=== PATIENT | male | born 1980 | race Caucasian/White ===

== ENCOUNTER → 2020-07-12 14:27 | Outpatient (CLI) | payer MEDICAID, SELFPAY ==
--- NOTE | 2020-07-12 14:32 | XR_ITS ---
PROCEDURE: XR FOOT WT BEARING LT 3V CLINICAL INDICATION: foot pain COMPARISON: No exams were available for comparison FINDINGS: No fracture or dislocation. No lytic or blastic change. There is normal mineralization. The joint spaces are well-preserved. No significant degenerative/arthritic changes. No erosive changes evident. Other findings:There is a small calcaneal spur but no obvious erosive change. No plantar fascia calcification. IMPRESSION: No acute findings. Dictated by: Kervin Gutierrez MD 07/12/2020 14:51 Kervin Gutierrez MD in [place] 07/12/2020 14:51
== END ==
PROVIDERS: PCP Family Medicine; Visit Provider Family Medicine
DX: M71.472 Calcium deposit in bursa, left ankle and foot (principal); M77.32 Calcaneal spur, left foot
CPT/HCPCS: 73630

== ENCOUNTER → 2022-04-30 20:44 | Outpatient (CLI) | payer MEDICAID, SELFPAY ==
[2022-04-30 17:56] LABS: Basophils % 0.5 % (0.1-2.0); Eosinophils # 0.1 K/mm3 (0.0-0.4); Eosinophils % 1.4 % (0.1-12.0); Hemoglobin 14.6 g/dL (14.1-18.0); Lymphocytes # 2.1 K/mm3 (0.7-4.5); Lymphocytes % 31.8 % (10-50); Mean Corpuscular HGB Conc 32.5 g/dL (31.8-35.4); Mean Corpuscular Hemoglobin 29.9 pg (27.0-31.2); Mean Corpuscular Volume 91.9 fl (80-94); Mean Platelet Volume 10.3 fl (7.4-10.4); Monocytes # 0.4 K/mm3 (0.1-1.0); Monocytes % 5.6 % (1.7-9.3); Neutrophils # 4.1 K/mm3 (1.8-7.8); Neutrophils % 60.7 % (37.0-80.0); Platelet Count 225 K/mm3 (142-424); Red Blood Count 4.89 M/mm3 (4.60-6.20); Red Cell Distribution Width 13.2 % (11.5-17.5); White Blood Count 6.7 K/mm3 (4.8-10.8)
[2022-04-30 17:59] LABS: Chloride 101 mmol/L (98-107); Potassium 4.1 mmoL/L (3.5-5.1); Sodium 138 mmol/L (136-145)
[2022-04-30 18:01] LABS: Blood Urea Nitrogen 18 mg/dl (9-20); Estimated Glomerular Filt Rate 126 ml/min (>60); GFR (African American) 152 ML/MIN (>60)
[2022-04-30 18:02] LABS: Alanine Aminotransferase 34 U/L (12-78); Albumin Level 4.2 g/dl (3.5-5.0); Albumin/Globulin Ratio 1.9 (1.1-1.8); Alkaline Phosphatase 80 U/L (38-126); Anion Gap 12.1 mEq/L (5-15); Aspartate Amino Transferase 33 U/L (17-59); Bilirubin,Total 0.5 mg/dl (0.2-1.3); Calcium 8.9 mg/dl (8.4-10.2); Carbon Dioxide 29 mmol/L (22.0-30.0); Chol/HDL Ratio 5.3 (1-3.5); Cholesterol 184 mg/dl (140-200); Globulin 2.2 g/dL (1.3-3.2); Glucose 126 mg/dl (74-100); HDL Cholesterol 35 mg/dl (40-60); Total Protein,Serum 6.4 g/dl (6.3-8.2)
[2022-04-30 18:13] LABS: Direct LDL Cholesterol 88.11 mg/dL (100-129)
[2022-04-30 18:20] LABS: Triglycerides 461 mg/dl (30-150)
[2022-04-30 18:33] LABS: Thyroid Stimulating Hormone 0.82 uIU/mL (0.465-4.68)
== END ==
PROVIDERS: PCP Nurse Practitioner Family; Visit Provider Nurse Practitioner Family
DX: R53.83 Other fatigue (principal); F20.9 Schizophrenia, unspecified; I10 Essential (primary) hypertension
CPT/HCPCS: 36415; 80053; 80061; 80165; 84443; 85025

== ENCOUNTER 2023-06-01 21:08 | Outpatient (CLI) | payer MEDICAID, SELFPAY ==
[2023-06-01 18:49] LABS: Basophils % 0.4 % (0.1-2.0); Eosinophils % 0.7 % (0.1-12.0); Hematocrit 45.4 % (42.0-52.0); Hemoglobin 15.8 g/dL (14.1-18.0); Lymphocytes # 2.2 K/mm3 (0.7-4.5); Lymphocytes % 35.9 % (10-50); Mean Corpuscular HGB Conc 34.9 g/dL (31.8-35.4); Mean Corpuscular Hemoglobin 31.6 pg (27.0-31.2); Mean Corpuscular Volume 90.4 fl (80-94); Mean Platelet Volume 10.3 fl (7.4-10.4); Monocytes # 0.4 K/mm3 (0.1-1.0); Monocytes % 7.1 % (1.7-9.3); Neutrophils # 3.3 K/mm3 (1.8-7.8); Neutrophils % 55.9 % (37.0-80.0); Platelet Count 215 K/mm3 (142-424); Red Blood Count 5.02 M/mm3 (4.60-6.20); Red Cell Distribution Width 13.3 % (11.5-17.5)
[2023-06-01 18:59] LABS: Alanine Aminotransferase 35 U/L (12-78); Albumin Level 4.5 g/dl (3.5-5.0); Albumin/Globulin Ratio 1.9 (1.1-1.8); Alkaline Phosphatase 77 U/L (38-126); Anion Gap 12.2 mEq/L (5-15); Aspartate Amino Transferase 37 U/L (17-59); Bilirubin,Total 0.4 mg/dl (0.2-1.3); Blood Urea Nitrogen 17 mg/dl (9-20); Calcium 9.7 mg/dl (8.4-10.2); Carbon Dioxide 27 mmol/L (22.0-30.0); Chloride 105 mmol/L (98-107); Chol/HDL Ratio 5.6 (1-3.5); Cholesterol 203 mg/dl (140-200); Estimated Glomerular Filt Rate 107 ml/min (>60); GFR (African American) 130 ML/MIN (>60); Globulin 2.4 g/dL (1.3-3.2); Glucose 110 mg/dl (74-100); HDL Cholesterol 36 mg/dl (40-60); Potassium 4.2 mmoL/L (3.5-5.1); Sodium 140 mmol/L (136-145); Total Protein,Serum 6.9 g/dl (6.3-8.2); Triglycerides 368 mg/dl (30-150); VLDL Cholesterol 74 mg/dL (0-40)
[2023-06-01 19:16] LABS: 25-OH Vitamin D, Total 19.9 ng/mL (30-100)
[2023-06-01 19:18] LABS: Direct LDL Cholesterol 109.38 mg/dL (100-129)
[2023-06-01 19:26] LABS: Hemoglobin A1C 5.4 % (4.0-6.0)
[2023-06-01 19:30] LABS: Thyroid Stimulating Hormone 1.62 uIU/mL (0.465-4.68)
[2023-06-08 10:42] LABS: Free Valproic Acid (Depakote) 14.9
== END 2023-06-01 23:59 ==
LOC: LAB.DROPOF 21:08
PROVIDERS: PCP Student in an Organized Health Care Education/Training Program; Visit Provider Student in an Organized Health Care Education/Training Program
DX: G40.909 Epilepsy, unspecified, not intractable, without status epilepticus (principal); E78.5 Hyperlipidemia, unspecified; E55.9 Vitamin D deficiency, unspecified; Z79.899 Other long term (current) drug therapy
CPT/HCPCS: 80053; 80061; 80165; 82306; 83036; 84443; 85025

== ENCOUNTER 2023-07-19 07:33 | Outpatient (CLI) | payer MEDICAID, SELFPAY ==
--- NOTE | 2023-07-19 07:39 | MR_ITS ---
FINAL REPORT CLINICAL HISTORY: Seizure. TREMORS COMPARISON: None FINDINGS: Multiplanar MR imaging of the brain was performed without contrast. There is no evidence of intracranial hemorrhage or mass. The ventricular size is normal. There is no evidence of shift of the midline structures. No abnormal extra-axial fluid collection is identified. The posterior fossa and brainstem have an unremarkable appearance. No area of abnormal restricted diffusion is identified. Normal major vessel vascular flow voids are seen. Mild mucosal thickening is present in the ethmoid air cells. IMPRESSION: Unremarkable brain with no acute intracranial abnormality. Reviewed, Interpreted and Dictated by Xavier Ng III, MD Transcribed by Kayley Gao Authenticated and [facility]
== END 2023-07-19 23:59 ==
LOC: RAD 07:35
PROVIDERS: PCP Nurse Practitioner Family; Visit Provider Specialist
DX: G40.909 Epilepsy, unspecified, not intractable, without status epilepticus (principal); Z87.828 Personal history of other (healed) physical injury and trauma
CPT/HCPCS: 70551

== ENCOUNTER 2023-10-04 09:26 | Outpatient (CLI) | payer MEDICAID, SELFPAY ==
[2023-10-04 19:04] LABS: Basophils % 0.5 % (0.1-2.0); Eosinophils # 0.1 K/mm3 (0.0-0.4); Eosinophils % 1.1 % (0.1-12.0); Hematocrit 43.9 % (42.0-52.0); Hemoglobin 15.5 g/dL (14.1-18.0); Lymphocytes # 2.5 K/mm3 (0.7-4.5); Lymphocytes % 40.4 % (10-50); Mean Corpuscular HGB Conc 35.4 g/dL (31.8-35.4); Mean Corpuscular Hemoglobin 32.2 pg (27.0-31.2); Mean Corpuscular Volume 90.8 fl (80-94); Monocytes # 0.4 K/mm3 (0.1-1.0); Monocytes % 6.6 % (1.7-9.3); Neutrophils # 3.1 K/mm3 (1.8-7.8); Neutrophils % 51.4 % (37.0-80.0); Platelet Count 235 K/mm3 (142-424); Red Blood Count 4.83 M/mm3 (4.60-6.20); Red Cell Distribution Width 13.8 % (11.5-17.5); White Blood Count 6.1 K/mm3 (4.8-10.8)
[2023-10-04 19:26] LABS: Alanine Aminotransferase 33 U/L (12-78); Albumin Level 4.5 g/dl (3.5-5.0); Albumin/Globulin Ratio 1.7 (1.1-1.8); Alkaline Phosphatase 86 U/L (38-126); Anion Gap 16.2 mEq/L (5-15); Aspartate Amino Transferase 33 U/L (17-59); Bilirubin,Total 0.5 mg/dl (0.2-1.3); Blood Urea Nitrogen 17 mg/dl (9-20); Calcium 9.9 mg/dl (8.4-10.2); Carbon Dioxide 26 mmol/L (22.0-30.0); Chloride 100 mmol/L (98-107); Chol/HDL Ratio 6.1 (1-3.5); Cholesterol 244 mg/dl (140-200); Estimated Glomerular Filt Rate 149 ml/min (>60); GFR (African American) 181 ML/MIN (>60); Globulin 2.6 g/dL (1.3-3.2); Glucose 91 mg/dl (74-100); HDL Cholesterol 40 mg/dl (40-60); Potassium 4.2 mmoL/L (3.5-5.1); Sodium 138 mmol/L (136-145); Total Protein,Serum 7.1 g/dl (6.3-8.2)
[2023-10-04 19:37] LABS: Direct LDL Cholesterol 107.44 mg/dL (100-129)
[2023-10-04 19:45] LABS: 25-OH Vitamin D, Total 27.6 ng/mL (30-100)
[2023-10-04 19:57] LABS: Triglycerides 864 mg/dl (30-150)
[2023-10-04 20:56] LABS: Free Thyroxine Index 2.1 ug/dL (5.93-13.13); T4 (Thyroxine) 6.4 ug/dl (5.53-11.0); Triiodothryronine (T3) Uptake 33 % (23.5-40.5)
[2023-10-04 21:09] LABS: Thyroid Stimulating Hormone 1.56 uIU/mL (0.465-4.68)
[2023-10-11 10:05] LABS: Free Valproic Acid (Depakote) 36.9
== END 2023-10-04 23:59 | disposition home or self-care (01) ==
LOC: LAB.DROPOF 10-05 09:27
PROVIDERS: PCP Nurse Practitioner Family; Visit Provider Nurse Practitioner Family
DX: G40.909 Epilepsy, unspecified, not intractable, without status epilepticus (principal); E78.5 Hyperlipidemia, unspecified; F20.9 Schizophrenia, unspecified; E55.9 Vitamin D deficiency, unspecified; Z68.35 Body mass index [BMI] 35.0-35.9, adult
CPT/HCPCS: 80053; 80061; 80165; 82306; 84436; 84443; 84479; 85025

== ENCOUNTER 2023-10-26 18:00 | Outpatient (CLI) | payer MEDICAID, SELFPAY ==
[2023-11-13 12:27] LABS: Free Valproic Acid (Depakote) 10.4
== END 2023-10-26 23:59 | disposition home or self-care (01) ==
LOC: LAB.DROPOF 10-27 08:15
PROVIDERS: PCP Student in an Organized Health Care Education/Training Program; Visit Provider Student in an Organized Health Care Education/Training Program
DX: G40.909 Epilepsy, unspecified, not intractable, without status epilepticus (principal)
CPT/HCPCS: 80165

== ENCOUNTER 2023-11-24 05:53 | Emergency (ER) | payer MEDICAID, SELFPAY ==
[2023-11-24 05:53] VITALS: BP 151/96; PULSE 73; RESP 18; TEMP 36.6; O2SAT 96; BMI 35.5
--- NOTE | 2023-11-24 05:57 | ECG_ITS ---
APPROVED REPORT Exam: Resting ECG HR:71 bpm ECG Measurements Heart Rate [address] 180 P 45 QRSd 92 QRS 30 QT 395 T 251 QTc 418 Conclusion SINUS RHYTHM MODERATE T-WAVE ABNORMALITY, CONSIDER ANTEROLATERAL ISCHEMIA [-0.1+ mV T-WAVE IN V3-V6] ABNORMAL ECG Electronically signed by : ROMARIO LOZOYA, 11/24/2023 16:30:43
[2023-11-24] MEDS: LACTATED RINGERS 1000ML 1,000 ML 999 ML IV (06:13)
[2023-11-24] MEDS: ONDANSETRON 4MG/2ML VIAL 4 MG IV (06:13)
[2023-11-24] MEDS: ACETAMINOPHEN 500MG TAB 1000 MG PO (06:13)
[2023-11-24] MEDS: KETOROLAC 30MG/ML VIAL 30 MG IV (06:13)
--- NOTE | 2023-11-24 06:35 | PC.NURSE ---
pt taken to CT scan. per downtime charting by Omer MCFADDEN
--- NOTE | 2023-11-24 06:52 | PC.NURSE ---
pt returns to his room, from CT. per downtime charting by Omer MCFADDEN
--- NOTE | 2023-11-24 07:29 | PC.NURSE ---
pt and family updated on poc at this time.
--- NOTE | 2023-11-24 07:35 | HMH.EDGENADL ---
Discharge Plan Disposition Patient Disposition: Home, Self-Care Prescriptions Prescriptions: No Action trihexyphenidyl 2 mg tablet 2 mg PO DAILY Qty: 30 0RF Rx Instructions: give with food (meal/snack) divalproex 250 mg tablet,delayed release (DR/EC) 250 mg PO HS Qty: 30 0RF Rx Instructions: Take one tablet by mouth at night divalproex 500 mg tablet,delayed release (DR/EC) See Rx Instructions PO DAILY Qty: 30 0RF Dose Instruction: TAKE ONE TABLET BY MOUTH TWICE DAILY Rx Instructions: Take one tablet by mouth once daily in the morning rosuvastatin 40 mg tablet 40 mg PO DAILY Qty: 90 0RF olanzapine [Zyprexa] 10 mg tablet 10 mg PO HS Qty: 30 1RF Referrals Follow up/Referrals: Stefan Keene APRN [Primary Care Provider] - See instructions Activity Restrictions/Add. Instructions Additional Instructions/Restrictions: You were evaluated in the emergency department today. At this time, your labs, urinalysis, and CT scan are reassuring. We do not see an obvious cause for your pain. You do have a potential lesion on your liver, for which I recommend follow-up with your primary care provider. They can choose to obtain repeat imaging to monitor this on an outpatient basis. Take Tylenol and ibuprofen at home as needed for pain. Return to the emergency department for new or worsening symptoms. Clinical Impressions Clinical Impression: Abdominal pain, Lesion of liver Instructions Patient Instructions: DI for Abdominal Pain-Adult, DI for Acute Pain -- Adult Print Language Print Language: Azeri Discharge ED Provider: Shi Roman General Adult HPI General Chief complaint: PAIN Stated complaint: Chest pain Time Seen by Provider: 11/24/23 05:55 Mode of Arrival: Ambulatory Source of Information: Patient and Parent(s) Limitations: No Limitations Description of Symptoms (Recalled from ER Triage Doc. by RN): pt c/o generalized pain. History of Present Illness HPI narrative: 43-year-old male with history of autism, seizure disorder presents for generalized pain.? He reports he noticed this morning when he woke up.? When asked where to localize it, he points to his abdomen.? He specifically denies any chest pain or shortness of breath.? Denies any recent fever.? Denies any recent illness.? Reports no pain with urination, reports normal bowel movements, last yesterday.? Family reports that he has never been to the hospital before and generally does fairly well.? They are concerned that his blood pressure was high at home. Related Data Previous Rx's ?Medication ?Instructions ?Recorded trihexyphenidyl 2 mg tablet 2 mg PO DAILY #30 tabs 10/04/23 divalproex 250 mg tablet,delayed 250 mg PO HS #30 tabs 10/15/23 release divalproex 500 mg tablet,delayed See Rx Instructions PO DAILY #30 10/15/23 release tabs rosuvastatin 40 mg tablet 40 mg PO DAILY #90 tabs 10/26/23 olanzapine 10 mg tablet (Zyprexa) 10 mg PO HS #30 tabs 11/01/23 Allergies Allergy/AdvReac Type Severity Reaction Status Date / Time No Known Allergies Allergy Verified 11/24/23 07:35 [facility] Disclaimer: The information contained in this section may have been updated after the patient was seen, as this information can be updated by other users. Medical History Autism spectrum disorder Diarrhea Plantar fasciitis of left foot Seizure disorder History of head injury without fracture of skull Schizophrenia Family history of coronary arteriosclerosis HLD (hyperlipidemia) Surgical History No significant past surgical history Family History Other Coronary arteriosclerosis Social History Smoking Status: Never smoker second hand exposure: No alcohol intake: never counseling given: No substance use type: denies use counseling given: No current occupational status: disabled Travel in the last 8 weeks: None adopted: No caregiver/support person: No foster care: No household members: family housing: house lives independently: No marital status: single number of children: 0 education level: high school caffeine: No physical activity: none working smoke detector in home: Yes fire extinguisher in home: Yes carbon monox detector in home: No firearms in home: No do you feel safe at home: Yes victim of physical abuse: No victim of emotional abuse: No victim of sexual abuse: No would you like helpful sources: No ROS Obtained: Yes All systems reviewed & no additional complaints except as documented Physical Exam General General appearance: alert and in no apparent distress Head Head exam: atraumatic and normocephalic Eye Eye exam: Present normal appearance, PERRL and EOMI ENT ENT exam: Present normal exam, normal oropharynx, mucous membranes moist and normal external ear exam Neck Neck exam: Present normal inspection, full ROM and trachea midline; Absent tenderness Chest Chest inspection: Present normal inspection and symmetric chest wall rise; Absent tenderness Respiratory Respiratory exam: Present normal lung sounds bilaterally; Absent respiratory distress, wheezes, stridor or accessory muscle use Cardiovascular Cardiovascular exam: Present regular rate and normal rhythm Abdominal Exam Abdominal exam: Present soft; Absent distention, tenderness or guarding Extremities Exam Extremities exam: Present normal inspection, full ROM and normal capillary refill; Absent tenderness or edema Back Exam Back exam: Present normal inspection and full ROM; Absent tenderness Neurological Exam Neurological exam: Present alert, oriented X3, CN II-XII intact and normal gait; Absent motor sensory deficit Psychiatric Psychiatric exam: Present normal affect and normal mood Skin Skin exam: Present warm and dry Medical Decision Making Medical Records Medical records reviewed: Yes I reviewed the patient's medical records. Mario Inquiry Pt receiving controlled substance: No Vital Signs: 11/24/23 05:53 11/24/23 08:27 Temperature 97.9 F 97.9 F Temperature Source Oral Pulse Rate 69 Pulse Rate [Left] 73 Respiratory Rate 18 14 Blood Pressure 122/72 Blood Pressure [Right Arm] 151/96 H Blood Pressure Mean [Right Arm] 114 Blood Pressure Source [Right Arm] Automatic Cuff Blood Pressure Position [Right Arm] Sitting 02 Sat by Pulse Oximetry 96 Oxygen Delivery Method Room Air Lab Data Lab results reviewed: Yes I reviewed the patient's lab results. Lab Results 11/24/23 06:29: SARS-CoV-2 (PCR) Not detected, Influenza A Untype (PCR) Not detected, Influenza Type B (PCR) Not detected 11/24/23 07:41: Urine Color Straw, Urine Appearance Clear, Urine pH 6.5, Ur Specific [place] <= 1.005, Urine Protein Negative, Urine Glucose (UA) Negative, Urine Ketones Negative, Urine Blood Negative, Urine Nitrate Negative, Urine Bilirubin Negative, Urine Urobilinogen 0.2, Ur Leukocyte Esterase Negative, Urine RBC None, Urine WBC Occasional, Ur Squamous Epith Cells None, Urine Bacteria Trace 11/24/23 : WBC 6.5, RBC 4.72, Hgb 14.8, Hct 43.6, MCV 92.5, MCH 31.5 H, MCHC 34.0, RDW 13.8, Plt Count 228, MPV 9.8, Neut % (Auto) 43.4, Lymph % (Auto) 47.1, [place] % (Auto) 7.2, Eos % (Auto) 1.7, Baso % (Auto) 0.6, Neut # (Auto) 2.8, Lymph # (Auto) 3.1, [place] # (Auto) 0.5, Eos # (Auto) 0.1, Baso # (Auto) 0.0, Sodium 137, Potassium 4.1, Chloride 104, Carbon Dioxide 30, Anion Gap 7.1, BUN 13, Creatinine 0.60 L, Estimated Creat Clear 217, Estimated GFR 149, Est GFR ( Amer) 181, Glucose 104 H, Calcium 9.4, Total Bilirubin 0.5, AST 30, ALT 34, Alkaline Phosphatase 68, Total Protein 6.5, Albumin 4.0, Globulin 2.5, Albumin/Globulin Ratio 1.6, Amylase 78, Lipase 95 11/24/23 Unknown 11/24/23 Unknown Orders (Tests/Meds): ED MEDICATIONS Discontinued Medications Generic Name Dose Route Start Last Admin Trade Name Lorie PRN Reason Stop Dose Admin Acetaminophen 1,000 mg 11/24/23 06:13 11/24/23 06:13 Acetaminophen 500mg Tab PO 11/24/23 06:14 1,000 mg ONCE ONE Administration Lactated Ringer's 1,000 mls @ 999 mls/hr 11/24/23 06:13 11/24/23 06:13 Lactated Ringer's 1000 Ml Bag IV 11/24/23 07:13 999 mls/hr .Q1H1M ONE Administration Iopamidol 75 ml 11/24/23 07:41 11/24/23 07:42 Iopamidol-370 (76%);100ml Bottle IV 11/24/23 07:42 75 ml ONCE ONE Administration Ketorolac Tromethamine 30 mg 11/24/23 06:13 11/24/23 06:13 Ketorolac 30mg/Ml Vial IV 11/24/23 06:14 30 mg ONCE ONE Administration Ondansetron HCl 4 mg 11/24/23 06:13 11/24/23 06:13 Ondansetron 4mg/2ml Vial IV 11/24/23 06:14 4 mg ONCE ONE Administration Sodium Chloride 10 ml 11/24/23 07:41 11/24/23 07:42 Sodium Chloride 0.9% 10ml Syr (Rad Only) IV 11/24/23 07:42 10 ml ONCE ONE Administration ORDERS Category Date Time Status CT abdomen pelvis w con Routine Cat Scan 11/24/23 07:40 Completed Amylase Routine Lab 11/24/23 Completed Complete Blood Count Auto Diff Routine Lab 11/24/23 Completed Comprehensive Metabolic Panel Routine Lab 11/24/23 Completed Lipase Routine Lab 11/24/23 Completed Rapid PCR Covid and Flu A/B Routine Lab 11/24/23 06:29 Completed UA [Urinalysis and Microscopic] Stat Lab 11/24/23 07:41 Completed Medical Decision Narrative: MD Kike: 43-year-old male with history of autism and seizure disorder presents for generalized abdominal pain.? On initial evaluation patient is afebrile, hemodynamically stable, generally well-appearing.? Reports pain is improved from prior to arrival.? Differential diagnosis includes promoted to cholecystitis, appendicitis, pancreatitis gastroenteritis, UTI, ureterolithiasis, COVID, flu.? Patient given Tylenol, Toradol, Zofran, 1 L IV fluid for symptomatic management.? Workup ordered including CBC CMP lipase, urinalysis, CT abdomen pelvis with IV contrast. On reassessment patient reports some symptomatic improvement.? Laboratories all significant hyperglycemia and significant for negative lipase, normal LFTs, no significant leukocytosis. DO Abel: On my assessment of the patient, he is resting comfortably in bed in no acute distress. He is negative for COVID, flu, and strep. CMP is reassuring without significantly concerning abnormality. CBC is reassuring with no significant leukocytosis. CT read and urinalysis pending on my assumption of care. CT read demonstrates likely benign liver lesion, which I did advise patient and family of and advised that they follow-up outpatient with primary care for monitoring of this. No other acutely concerning abnormalities. On reassessment, patient still states that he has no abdominal pain. Abdominal exam is benign with no tenderness. Given this, reassuring workup, and reassuring exam, I feel that he is appropriate for discharge home with close follow-up with primary care and strict return precautions. Patient was discharged in stable condition after all questions were answered. Critical Care Critical Care Time Critical Care Time: No
--- NOTE | 2023-11-24 07:37 | PC.NURSE ---
All documentation prior to 0700 was put in per Omer downtime paper documentation.
--- NOTE | 2023-11-24 07:40 | CT_ITS ---
FINAL REPORT TECHNIQUE: Oral and IV contrast enhanced exam CLINICAL HISTORY: generalized abd pain COMPARISON: None FINDINGS: Abdomen: No acute density is seen within the lung bases. There is a hypodense less than 1 cm in size lesion in the left liver dome, that may represent a vascular perfusion anomaly, hemangioma, or other focal liver mass of doubtful significance. The gallbladder is unremarkable. Solid abdominal organs are otherwise unremarkable. No bowel obstruction is present. There is no free air. No fluid collection is seen. There is no adenopathy. Pelvis: The appendix is normal. No bowel wall thickening is present. There is no free fluid. No pelvic mass is seen. IMPRESSION: Hyperdense hepatic lesion as described above, likely vascular perfusion anomaly, hemangioma, or other focal hepatic mass of doubtful significance. Otherwise unremarkable CT abdomen and pelvis. Reviewed, Interpreted and Dictated by Milka Brito MD Transcribed by Kayley Gao Authenticated and [facility]
[2023-11-24] MEDS: IOPAMIDOL-370 (76%);100ML BOTTLE 75 ML IV (07:42)
[2023-11-24] MEDS: SODIUM CHLORIDE 0.9% 10ML SYR (RAD ONLY) 10 ML IV (07:42)
[2023-11-24 07:43] LABS: Microscopic, Urine URINE MICROSCOPIC (MICROSCOPIC)
--- NOTE | 2023-11-24 07:50 | PC.NURSE ---
pt assisted to br and ua sent
[2023-11-24 07:51] LABS: Coronavirus 19, PCR Not Detected (NotDetected); Influenza A, PCR Not Detected (NotDetected); Influenza B, PCR Not Detected (NotDetected)
[2023-11-24 08:12] LABS: Appearance,Urine CLEAR (Clear); Bilirubin,Urine Negative (Negative); Blood, Urine Negative (Negative); Glucose,Urine (UA) Negative (Negative); Ketones,Urine Negative (Negative); Leukocyte Esterase,Urine Negative (Negative); Nitrate,Urine Negative (Negative); PH,Urine 6.5 (5.0-8.5); Protein,Urine Negative (Negative); Specific Gravity, Urine <= 1.005 (1.005-1.030); Urobilinogen,Urine 0.2 EU/dl (0.2)
[2023-11-24 08:19] LABS: Color,Urine Straw (Yellow)
[2023-11-24 08:27] VITALS: BP 122/72; PULSE 69; RESP 14; TEMP 36.6; O2SAT 96
--- NOTE | 2023-11-24 08:30 | PC.NURSE ---
DR LOZOYA AT BEDSIDE TO UPDATE PARENTS
[2023-11-24 08:32] LABS: WBC,Urine Occasional #/hpf (0-3)
[2023-11-24 08:33] LABS: Bacteria,Urine Trace /lpf
[2023-11-24 09:20] LABS: Alanine Aminotransferase 34 U/L (12-78); Albumin/Globulin Ratio 1.6 (1.1-1.8); Alkaline Phosphatase 68 U/L (38-126); Amylase 78 U/L (30-110); Anion Gap 7.1 mEq/L (5-15); Aspartate Amino Transferase 30 U/L (17-59); Bilirubin,Total 0.5 mg/dl (0.2-1.3); Blood Urea Nitrogen 13 mg/dl (9-20); Calcium 9.4 mg/dl (8.4-10.2); Carbon Dioxide 30 mmol/L (22.0-30.0); Chloride 104 mmol/L (98-107); Creatinine Clearance Estimated 217 mL/min (50-200); Estimated Glomerular Filt Rate 149 ml/min (>60); GFR (African American) 181 ML/MIN (>60); Globulin 2.5 g/dL (1.3-3.2); Glucose 104 mg/dl (74-100); Lipase 95 U/L (23-300); Potassium 4.1 mmoL/L (3.5-5.1); Sodium 137 mmol/L (136-145); Total Protein,Serum 6.5 g/dl (6.3-8.2)
[2023-11-24 09:27] LABS: Basophils % 0.6 % (0.1-2.0); Eosinophils # 0.1 K/mm3 (0.0-0.4); Eosinophils % 1.7 % (0.1-12.0); Hematocrit 43.6 % (42.0-52.0); Hemoglobin 14.8 g/dL (14.1-18.0); Lymphocytes # 3.1 K/mm3 (0.7-4.5); Lymphocytes % 47.1 % (10-50); Mean Corpuscular Hemoglobin 31.5 pg (27.0-31.2); Mean Corpuscular Volume 92.5 fl (80-94); Mean Platelet Volume 9.8 fl (7.4-10.4); Monocytes # 0.5 K/mm3 (0.1-1.0); Monocytes % 7.2 % (1.7-9.3); Neutrophils # 2.8 K/mm3 (1.8-7.8); Neutrophils % 43.4 % (37.0-80.0); Platelet Count 228 K/mm3 (142-424); Red Blood Count 4.72 M/mm3 (4.60-6.20); Red Cell Distribution Width 13.8 % (11.5-17.5); White Blood Count 6.5 K/mm3 (4.8-10.8)
== END 2023-11-24 08:35 | disposition home or self-care (01) ==
PROVIDERS: Emergency Medicine; Emergency Provider Emergency Medicine; PCP Nurse Practitioner Family
DX: R10.84 Generalized abdominal pain (principal); K76.9 Liver disease, unspecified; F84.0 Autistic disorder; G40.909 Epilepsy, unspecified, not intractable, without status epilepticus
CPT/HCPCS: 74177; 80053; 81001; 82150; 83690; 85025; 87636; 93005; 96361; 96374; 96375; 99285; J1885; J2405; J7120; Q9967

== ENCOUNTER 2023-11-29 11:51 | Outpatient (CLI) | payer MEDICAID, SELFPAY ==
[2023-12-20 11:39] LABS: Free Valproic Acid (Depakote) 5.2
== END 2023-11-29 23:59 | disposition home or self-care (01) ==
LOC: LAB.DROPOF 11:52
PROVIDERS: PCP Nurse Practitioner Psychiatric/Mental Health; Visit Provider Nurse Practitioner Psychiatric/Mental Health
DX: F20.9 Schizophrenia, unspecified (principal)
CPT/HCPCS: 80165

== ENCOUNTER 2024-01-04 15:20 | Outpatient (CLI) | payer MEDICAID, SELFPAY ==
[2024-01-04 19:02] LABS: Basophils % 0.4 % (0.1-2.0); Eosinophils # 0.1 K/mm3 (0.0-0.4); Eosinophils % 1.1 % (0.1-12.0); Hematocrit 45.1 % (42.0-52.0); Hemoglobin 14.8 g/dL (14.1-18.0); Lymphocytes # 1.6 K/mm3 (0.7-4.5); Lymphocytes % 36.7 % (10-50); Mean Corpuscular HGB Conc 32.8 g/dL (31.8-35.4); Mean Corpuscular Volume 94.6 fl (80-94); Mean Platelet Volume 10.7 fl (7.4-10.4); Monocytes # 0.3 K/mm3 (0.1-1.0); Monocytes % 5.7 % (1.7-9.3); Neutrophils # 2.4 K/mm3 (1.8-7.8); Platelet Count 203 K/mm3 (142-424); Red Blood Count 4.77 M/mm3 (4.60-6.20); Red Cell Distribution Width 13.6 % (11.5-17.5); White Blood Count 4.3 K/mm3 (4.8-10.8)
[2024-01-04 19:27] LABS: Alanine Aminotransferase 37 U/L (12-78); Albumin Level 4.2 g/dl (3.5-5.0); Albumin/Globulin Ratio 1.6 (1.1-1.8); Alkaline Phosphatase 75 U/L (38-126); Anion Gap 9.3 mEq/L (5-15); Aspartate Amino Transferase 36 U/L (17-59); Bilirubin,Total 0.8 mg/dl (0.2-1.3); Blood Urea Nitrogen 11 mg/dl (9-20); Calcium 9.4 mg/dl (8.4-10.2); Carbon Dioxide 30 mmol/L (22.0-30.0); Chloride 102 mmol/L (98-107); Chol/HDL Ratio 4.2 (1-3.5); Cholesterol 174 mg/dl (140-200); Estimated Glomerular Filt Rate 148 ml/min (>60); GFR (African American) 180 ML/MIN (>60); Globulin 2.6 g/dL (1.3-3.2); Glucose 82 mg/dl (74-100); HDL Cholesterol 41 mg/dl (40-60); Potassium 4.3 mmoL/L (3.5-5.1); Sodium 137 mmol/L (136-145); Total Protein,Serum 6.8 g/dl (6.3-8.2); Triglycerides 208 mg/dl (30-150); VLDL Cholesterol 42 mg/dL (0-40)
[2024-01-04 19:38] LABS: Direct LDL Cholesterol 85.45 mg/dL (100-129)
== END 2024-01-04 23:59 | disposition home or self-care (01) ==
LOC: LAB.DROPOF 01-05 15:20
PROVIDERS: PCP Student in an Organized Health Care Education/Training Program; Visit Provider Student in an Organized Health Care Education/Training Program
DX: E78.5 Hyperlipidemia, unspecified (principal)
CPT/HCPCS: 80053; 80061; 85025

== ENCOUNTER 2024-05-04 08:31 | Outpatient (CLI) | payer MEDICAID, SELFPAY ==
[2024-05-04 09:11] LABS: Iron 129 ug/dL (49-181)
[2024-05-04 09:21] LABS: Total Iron Binding Capacity 378 ug/dL (261-462)
[2024-05-04 09:47] LABS: Ferritin 119 ng/ml (17.9-464)
== END 2024-05-04 23:59 | disposition home or self-care (01) ==
PROVIDERS: PCP Internal Medicine; Visit Provider Internal Medicine
DX: R53.83 Other fatigue (principal)
CPT/HCPCS: 36415; 82728; 83540; 83550; 84403

== ENCOUNTER 2024-09-11 12:46 | Emergency (ER) | payer MEDICAID, SELFPAY ==
[2024-09-11 13:34] VITALS: BP 134/85; PULSE 87; O2SAT 92
[2024-09-11 14:45] VITALS: BP 126/82; PULSE 76; RESP 14; TEMP 36.7; O2SAT 96; BMI 33.3
[2024-09-11 16:45] VITALS: BP 136/75; PULSE 70; RESP 18; O2SAT 97
[2024-09-11] MEDS: ONDANSETRON 4MG ODT 4 MG SL (16:50)
[2024-09-11 17:00] VITALS: BP 151/97; PULSE 71; RESP 23; O2SAT 96
[2024-09-11 17:15] LABS: Basophils % 0.2 % (0.1-2.0); Eosinophils % 0.6 % (0.1-12.0); Hematocrit 42.7 % (42.0-52.0); Hemoglobin 14.9 g/dL (14.1-18.0); Immature Granulocytes # 0.01 10^3uL; Immature Granulocytes % 0.2 %; Lymphocytes # 2.5 K/mm3 (0.7-4.5); Lymphocytes % 37.5 % (10-50); Mean Corpuscular HGB Conc 34.9 g/dL (31.8-35.4); Mean Corpuscular Hemoglobin 30.9 pg (27.0-31.2); Mean Corpuscular Volume 88.6 fl (80-94); Mean Platelet Volume 11.6 fl (7.4-10.4); Monocytes # 0.4 K/mm3 (0.1-1.0); Monocytes % 6.7 % (1.7-9.3); Neutrophils # 3.6 K/mm3 (1.8-7.8); Neutrophils % 54.8 % (37.0-80.0); Nucleated Red Blood Cells # 0 10^3/uL; Nucleated Red Blood Cells % 0 %; Platelet Count 210 K/mm3 (142-424); Red Blood Count 4.82 M/mm3 (4.60-6.20); Red Cell Distribution Width 12.1 % (11.5-17.5); Red Cell Distribution Width-SD 39.4 fL; White Blood Count 6.5 K/mm3 (4.8-10.8)
--- NOTE | 2024-09-11 17:27 | ED_ITS ---
Discharge Plan Disposition Patient Disposition: Home, Self-Care Condition: Good Prescriptions Prescriptions: New ondansetron 4 mg tablet,disintegrating 4 mg PO Q8H PRN (Reason: nausea and vomiting) 4 Days Qty: 12 0RF divalproex [Depakote] 250 mg tablet,delayed release (DR/EC) 250 mg PO HS Qty: 4 0RF Rx Instructions: Take one tablet nightly divalproex [Depakote] 500 mg tablet,delayed release (DR/EC) 500 mg PO DAILY Qty: 4 0RF Rx Instructions: Take 1 tablet by mouth each morning No Action ondansetron 4 mg tablet,disintegrating 8 mg PO Q8H PRN (Reason: nausea and vomiting) Qty: 60 0RF Rx Instructions: One to two tablets as needed olanzapine [Zyprexa] 10 mg tablet 10 mg PO HS Qty: 90 1RF trihexyphenidyl 2 mg tablet 2 mg PO DAILY Qty: 90 0RF Rx Instructions: give with food (meal/snack) divalproex 500 mg tablet,delayed release (DR/EC) See Rx Instructions PO DAILY Qty: 90 0RF Dose Instruction: TAKE ONE TABLET BY MOUTH TWICE DAILY Rx Instructions: Take one tablet by mouth once daily in the morning rosuvastatin 40 mg tablet 20 mg PO DAILY Qty: 90 0RF testosterone 20.25 mg/1.25 gram (1.62 %) gel in metered-dose pump 1 pump topical DAILY Qty: 75 0RF Rx Instructions: apply 1 pump amount over max area of ONE upper arm and shoulder dicyclomine 20 mg tablet See Rx Instructions .ROUTE .COMPLEX Qty: 60 2RF Dose Instruction: TAKE ONE TABLET BY MOUTH TWICE DAILY NEEDED FOR ABDOMINAL pain Rx Instructions: TAKE ONE TABLET BY MOUTH TWICE DAILY NEEDED FOR ABDOMINAL pain divalproex 250 mg tablet,delayed release (DR/EC) See Rx Instructions .ROUTE .COMPLEX Qty: 90 1RF Dose Instruction: TAKE ONE TABLET BY MOUTH EVERY DAY AT BEDTIME Rx Instructions: TAKE ONE TABLET BY MOUTH EVERY DAY AT BEDTIME Referrals Follow up/Referrals: Chu Morris DO [Primary Care Provider] - See instructions Activity Restrictions/Add. Instructions Additional Instructions/Restrictions: You were evaluated in the emergency department today. I spoke with the pharmacy who noted that they do have a different formulary than [facility], however it is unclear if this could be causing the symptoms since he is been getting the medication from clinic pharmacy for so long now. The symptoms seem to have started around the time that he had started rosuvastatin, so I recommend mentioning this to Dr. Morris at your follow up this week. I have provided you with a new prescription for Depakote at [facility] to see if this helps, but insurance will not cover this until 09/14/2024. I have also prescribed you a prescription for Zofran to have as needed for nausea, vomiting, and stomach upset. Please keep your appointment with Dr. Morris for any medication adjustments. Return to the emergency department for new or worsening symptoms. Clinical Impressions Clinical Impression: Nausea and vomiting Instructions Patient Instructions: DI for Diarrhea and Traveler's Diarrhea -- Adult, DI for Adverse Drug Reaction -- GI Intolerance, DI for Nausea -- Adult Print Language Print Language: Arabic Discharge ED Provider: Shi Roman General Adult HPI General Chief complaint: Nausea/Vomiting/Diarrhea Stated complaint: Medication- Divalproex, nausea/vomiting Time Seen by Provider: 09/11/24 16:43 Mode of Arrival: Ambulatory Source of Information: Patient and Significant Other Description of Symptoms (Recalled from ER Triage Doc. by RN): pt c/o N/V x1mo that has progressively gotten worse. pt has taken depekote x20yrs for seizures. pt and family member are concerned where it has worsed over the last few days that he is not getting adequate medication and that he will begin seizing. pts father is concerned that [facility] that the depekote may be making him sick due to possibly being a different manufacturing company? pt takes 500mg in the morning and 250mg in the evening. pt is typically sicker in the morning than evening and is generally able to keep down his evening dose. History of Present Illness HPI narrative: This patient is a 43-year-old male with a history of schizophrenia and seizure disorder managed on Depakote and olanzapine presenting to the emergency department for evaluation with concern for nausea, vomiting, diarrhea over the last month. According the patient, has been on Depakote for 20 years for seizures and mood disorder and family is concerned that it could be causing nausea and vomiting. They state that they had previously gotten it filled at [facility], but they switched to clinic pharmacy a couple of months ago and since then he seems to be having issues. They note that he has been switched to clinic pharmacy for 3 to 4 months but his GI issues only started about a month ago and have progressively worsened. I called and spoke with pharmacy who noted that he has been getting his medications there for about 6 months and the only recent change was that rosuvastatin was added for hyperlipidemia. Family is requesting that I send a new prescription for Depakote to [facility] to see if switching back to [employer] formulary would help. Patient currently is asymptomatic with no pain, nausea, or vomiting. Related Data Previous Rx's ?Medication ?Instructions ?Recorded olanzapine 10 mg tablet (Zyprexa) 10 mg PO HS #90 tabs 02/22/24 ondansetron 4 mg disintegrating 8 mg (2 x 4 mg) PO Q8H PRN nausea 02/22/24 tablet and vomiting #60 tabs trihexyphenidyl 2 mg tablet 2 mg PO DAILY #90 tabs 02/22/24 divalproex 500 mg tablet,delayed See Rx Instructions PO DAILY #90 05/02/24 release tabs dicyclomine 20 mg tablet See Rx Instructions .Route 05/23/24 .COMPLEX #60 tabs rosuvastatin 40 mg tablet 20 mg (1/2 x 40 mg) PO DAILY #90 07/11/24 tabs testosterone 1 pump topical DAILY #75 grams 07/11/24 divalproex 250 mg tablet,delayed See Rx Instructions .Route 08/21/24 release .COMPLEX #90 tabs divalproex 250 mg tablet,delayed 250 mg PO HS #4 tabs 09/11/24 release (Depakote) divalproex 500 mg tablet,delayed 500 mg PO DAILY #4 tabs 09/11/24 release (Depakote) ondansetron 4 mg disintegrating 4 mg PO Q8H PRN nausea and 09/11/24 tablet vomiting 4 days #12 tabs Allergies Allergy/AdvReac Type Severity Reaction Status Date / Time No Known Allergies Allergy Verified 09/11/24 17:35 [facility] Disclaimer: The information contained in this section may have been updated after the patient was seen, as this information can be updated by other users. Medical History Autism spectrum disorder Diarrhea Plantar fasciitis of left foot Seizure disorder History of head injury without fracture of skull Schizophrenia Family history of coronary arteriosclerosis HLD (hyperlipidemia) Surgical History No significant past surgical history Family History Other Coronary arteriosclerosis Social History Smoking Status: Never smoker second hand exposure: No alcohol intake: current alcohol intake frequency: a few times a month counseling given: No substance use type: denies use counseling given: No current occupational status: disabled Travel in the last 8 weeks?: None adopted: No caregiver/support person: No foster care: No household members: family housing: house lives independently: No marital status: single number of children: 0 education level: high school caffeine: No physical activity: none working smoke detector in home: Yes fire extinguisher in home: Yes carbon monox detector in home: No firearms in home: No do you feel safe at home: Yes victim of physical abuse: No victim of emotional abuse: No victim of sexual abuse: No would you like helpful sources: No Have you lived/traveled outside [place] in past 30 days?: No Contact w/someone who lives/traveled outside US past 30 days?: No Exposure to someone with infectious disease in past 14 days?: No Do you have a fever (greater than 100.4 F or 38 C)?: No Have you tested positive for COVID-19?: No Exposed to someone with COVID-19 in past 14 days?: No Do you have a sore throat?: No Do you have a cough?: No Do you have any weakness?: No Do you have any diarrhea?: No Are you experiencing any unusual bleeding?: No Do you have any muscle aches/pain?: No Do you have any abdominal pain?: No Are you experiencing loss of taste or smell?: No Other Medical History Have you received the Pneumonia Vaccine: No ROS Obtained: Yes All systems reviewed & no additional complaints except as documented Physical Exam General General appearance: alert and in no apparent distress Head Head exam: atraumatic and normocephalic Eye Eye exam: Present normal appearance, PERRL and EOMI ENT ENT exam: Present normal exam, normal oropharynx, mucous membranes moist and normal external ear exam Neck Neck exam: Present normal inspection, full ROM and trachea midline; Absent tenderness Chest Chest inspection: Present normal inspection and symmetric chest wall rise; Absent tenderness Respiratory Respiratory exam: Present normal lung sounds bilaterally; Absent respiratory distress, wheezes, stridor or accessory muscle use Cardiovascular Cardiovascular exam: Present regular rate and normal rhythm Abdominal Exam Abdominal exam: Present soft; Absent distention, tenderness or guarding Extremities Exam Extremities exam: Present normal inspection, full ROM and normal capillary refill; Absent tenderness or edema Back Exam Back exam: Present normal inspection and full ROM; Absent tenderness Neurological Exam Neurological exam: Present alert, oriented X3, CN II-XII intact and normal gait; Absent motor sensory deficit Psychiatric Psychiatric exam: Present normal affect and normal mood Skin Skin exam: Present warm and dry Medical Decision Making Medical Records Medical records reviewed: Yes I reviewed the patient's medical records. Screening: Per USPSTF and CDC recommendations, given the prevalence of disease in our region, it is our hospital?s policy to screen for HIV and viral Hepatitis for all patients aged 18 and over and those with ongoing risk factors. Mario Inquiry Pt receiving controlled substance: No Vital Signs: 09/11/24 13:34 09/11/24 14:45 09/11/24 16:45 Temperature 98.1 F Temperature Source Oral Pulse Rate 87 70 Pulse Rate [Left] 76 Respiratory Rate 14 18 Blood Pressure 134/85 136/75 Blood Pressure [Right Arm] 126/82 Blood Pressure Mean [Right Arm] 96 Blood Pressure Source Automatic Cuff Blood Pressure Source [Right Arm] Automatic Cuff Blood Pressure Position Sitting Blood Pressure Position [Right Arm] Sitting 02 Sat by Pulse Oximetry 92 L 96 97 Oxygen Delivery Method Room Air Room Air Room Air 09/11/24 17:00 09/11/24 18:22 Temperature 98.3 F Temperature Source Oral Pulse Rate 71 74 Pulse Rate [Left] Respiratory Rate 23 18 Blood Pressure 151/97 H 134/90 Blood Pressure [Right Arm] Blood Pressure Mean [Right Arm] Blood Pressure Source Blood Pressure Source [Right Arm] Blood Pressure Position Blood Pressure Position [Right Arm] 02 Sat by Pulse Oximetry 96 Oxygen Delivery Method Room Air Room Air Lab Data Lab results reviewed: Yes I reviewed the patient's lab results. Lab Results 09/11/24 17:07: WBC 6.5, RBC 4.82, Hgb 14.9, Hct 42.7, MCV 88.6, MCH 30.9, MCHC 34.9, RDW 12.1, Plt Count 210, MPV 11.6 H, Neut % (Auto) 54.8, Lymph % (Auto) 37.5, [place] % (Auto) 6.7, Eos % (Auto) 0.6, Baso % (Auto) 0.2, Neut # (Auto) 3.6, Lymph # (Auto) 2.5, [place] # (Auto) 0.4, Eos # (Auto) 0.0, Baso # (Auto) 0.0, S odium 135 L, Potassium 3.5, Chloride 105, Carbon Dioxide 24, Anion Gap 9.5, BUN 13, Creatinine 0.50 L, Estimated Creat Clear 249, Estimated GFR 183, Est GFR ( Amer) 222, Glucose 130 H, Calcium 9.0, Total Bilirubin 0.5, AST 29, ALT 27, Alkaline Phosphatase 65, Total Protein 7.0, Albumin 4.5, Globulin 2.5, Albumin/Globulin Ratio 1.8, Lipase 104, TSH 1.94, Thyroxine (T4) 7.7 09/11/24 17:07 09/11/24 17:07 Orders (Tests/Meds): ED MEDICATIONS Discontinued Medications Generic Name Dose Route Start Last Admin Trade Name Freq PRN Reason Stop Dose Admin Ondansetron HCl 4 mg 09/11/24 16:45 09/11/24 16:50 Ondansetron 4mg Odt SL 09/11/24 16:46 4 mg ONCE ONE Administration ORDERS Category Date Time Status Complete Blood Count Auto Diff Stat Lab 09/11/24 17:07 Completed Comprehensive Metabolic Panel Stat Lab 09/11/24 17:07 Completed Free Valproic Acid (Depakote) Routine Lab 09/11/24 17:07 Received HIV Combo Stat Lab 09/11/24 17:07 Received Hepatitis C Ab Qual. W/ RFX Stat Lab 09/11/24 17:07 Received Lipase Stat Lab 09/11/24 17:07 Completed T4 (Thyroxine) Stat Lab 09/11/24 17:07 Completed TSH [Thyroid Stimulating Hormone] Stat Lab 09/11/24 17:07 Completed Medical Decision Narrative: In summary, this patient is a 43-year-old male presenting to the Emergency Department for evaluation of nausea and vomiting for 1 month which he thinks is related to Depakote formulary. Differential diagnoses considered include but are not limited to medication adverse reaction, gastroparesis, gastritis, peptic ulcer disease, pancreatitis. Ruling out the most morbid conditions drove assessment. It should be noted patient's history includes schizophrenia, seizure disorder, hyperlipidemia which may or may not be at goal therapy. This complicates all aspects of care by increasing patient's risk for morbidity. I reviewed patient's past medical records and noted previous PCP evaluations for maintenance of health. He has an appointment scheduled 09/14/2024. On exam, the patient is lying in bed in no acute distress. History is obtained from patient, father, and from pharmacy as detailed in HPI. His nausea and vomiting appears to have started about a month ago which was around the same time that he started rosuvastatin. He has not had recent changes in his Depakote formulary that I feel would likely explain this, but they remain adamant that it is related to the Depakote. Given this, I did provide them with a new Depakote prescription to [facility]. He is currently asymptomatic with normal vitals on cardiac telemetry. Workup included CBC, CMP, lipase, TSH, T4. Patient was given oral Zofran for symptomatic improvement to hopefully help with his tolerance of Depakote. Labs obtained and reassuring with nonactionable CBC, chemistry, normal thyroid studies. Abdominal exam is benign and he remains asymptomatic on reassessment. I encouraged him to take his home medications I did provide him with prescription for Depakote at [facility] at his request for several days to hold him over until his appointment with his PCP. I encouraged him to discuss these things with his PCP but not to skip medication doses until then. I prescribed Zofran to help combat any sort of nausea. Strict return precautions were given and patient was discharged with close follow-up this week Critical Care Critical Care Time Critical Care Time: No
[2024-09-11 17:41] LABS: Albumin Level 4.5 g/dl (3.5-5.0); Chloride 105 mmol/L (98-107)
[2024-09-11 17:42] LABS: Potassium 3.5 mmoL/L (3.5-5.1); Sodium 135 mmol/L (136-145)
[2024-09-11 17:44] LABS: Alanine Aminotransferase 27 U/L (12-78); Anion Gap 9.5 mEq/L (5-15); Aspartate Amino Transferase 29 U/L (17-59); Bilirubin,Total 0.5 mg/dl (0.2-1.3); Blood Urea Nitrogen 13 mg/dl (9-20); Carbon Dioxide 24 mmol/L (22.0-30.0); Creatinine Clearance Estimated 249 mL/min (50-200); Estimated Glomerular Filt Rate 183 ml/min (>60); GFR (African American) 222 ML/MIN (>60)
[2024-09-11 17:45] LABS: Albumin/Globulin Ratio 1.8 (1.1-1.8); Alkaline Phosphatase 65 U/L (38-126); Globulin 2.5 g/dL (1.3-3.2); Glucose 130 mg/dl (74-100); Lipase 104 U/L (23-300)
[2024-09-11 18:02] LABS: T4 (Thyroxine) 7.7 ug/dl (5.53-11.0)
[2024-09-11 18:16] LABS: Thyroid Stimulating Hormone 1.94 uIU/mL (0.465-4.68)
[2024-09-11 18:22] VITALS: BP 134/90; PULSE 74; RESP 18; TEMP 36.8; O2SAT 98
[2024-09-11 19:41] LABS: HIV Combo NEGATIVE (Negative)
[2024-09-11 19:49] LABS: Hepatitis C Ab Qual. W/ RFX NEGATIVE (Negative)
== END 2024-09-11 18:21 | disposition home or self-care (01) ==
PROVIDERS: Student in an Organized Health Care Education/Training Program; Emergency Provider Emergency Medicine; PCP Internal Medicine
DX: R11.2 Nausea with vomiting, unspecified (principal); G40.909 Epilepsy, unspecified, not intractable, without status epilepticus; Z79.899 Other long term (current) drug therapy; Z11.59 Encounter for screening for other viral diseases; Z11.4 Encounter for screening for human immunodeficiency virus [HIV]
CPT/HCPCS: 80053; 80165; 83690; 84436; 84443; 85025; 86803; 87389; 99283; Q0162

== ENCOUNTER 2024-11-24 07:54 | Outpatient (CLI) | payer MEDICAID, SELFPAY ==
--- OUTSIDE RECORDS SUMMARY | 2024-11-24 07:56 | XMS_ITS | Patient Health Record ---
Author Organization [facility] Billing Info Address [address] [place] [id number] Care Team Providers Care Executive Vice President Of Sales Name Role Phone ARLEY ROBLEDO Primary Care Provider SALBADOR GRIJALVA Unavailable [phone] Reason For Referral No Information Medications Medication SIG (Take, Route, Frequency, Duration) Notes Start Date End Date Status Olanzapine 10 MG Orally QHS Ac tive Olanzapine 5 MG 1 tablet Orally PRN Active Trihexyphenidyl HCl 5 MG 1 tablet Orally QHS Active Trihexyphenidyl HCl 2 MG Orally in the morning Active Divalproex Sodium 500 MG 1 tab Orally BID for 90 days Medically necessary for seizure Active Crestor 20 MG 1 tablet Orally Once a day for 90 days 12/07/2017 Active Omeprazole 20 MG 1 capsule Orally Once a day for heartburn 03/08/2017 Not-Taking Social History Tobacco Use: Social History Observation Description Date Details (start date - stop date) Never Smoker NA - NA Tobacco Status: Question Answer Notes Patient is a never smoker Problems Problem Type SNOMED Code ICD Code Onset Dates Problem Status W/U Status Risk Notes Problem 06099506 Other hyperlipidemia (E78.49) Active confirmed -Continue crestor -Will check repeat lipid panel. Problem 911681204 Dyslipidemia (E78.5) Active confirmed Problem 274534698709195 Obesity (BMI 30.0-34.9) (E66.9) Active confirmed -Patient has been losing weight with diet and exercise. Problem 734726399 Abdominal bloating (R14.0) Active confirmed Problem 152720745 Seizure disorder (G40.909) Active confirmed pt with long standing Hx of seizure, controlled on divalproex [place] 500 mg bid , no seizure since 2015, last valproic level WNL in . 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 Problem 04840560 Schizophrenia, unspecified type (F20.9) Active confirmed Initial diagnosis at 35 yo. Pt has auditory hallucination, but no CARMONA, SI. He is able to control his sx and was happy with the care he was receiving from his therapist, however Mrs king left, new thrapist that he likes so far. -cont olanzipine -cont trihexyphenidyl (antispasmodic drug ) he now takes 2mg in the morning and 5mg at night. Plan Of Treatment Pending Test Test Name Order Date TESTICULAR IMAGING; W/VASCULAR FLOW (782 [id number]) 06/13/2019 Insurance Providers Payer Name Payer Address Payer Phone Subscriber Number Group Number Insured Name Patient Relationship to Insured Coverage Start Date Coverage End Date [facility] [address] [place] [id number] [id number] Rivera Patricio Self - patient is the insured 8 Medical (General) History Medical History History ICD Code Autism Seizure Obesity Dyslipidemia Surgical History Surgery Date(Month/Year) Hospitalization History Reason Date(Month/Year) Seizures 12/2015
[2024-11-24 09:04] LABS: Alanine Aminotransferase 43 U/L (12-78); Albumin Level 4.1 g/dl (3.5-5.0); Albumin/Globulin Ratio 1.7 (1.1-1.8); Alkaline Phosphatase 79 U/L (38-126); Anion Gap 11.3 mEq/L (5-15); Aspartate Amino Transferase 32 U/L (17-59); Bilirubin,Total 0.6 mg/dl (0.2-1.3); Blood Urea Nitrogen 13 mg/dl (9-20); Calcium 9.8 mg/dl (8.4-10.2); Carbon Dioxide 28 mmol/L (22.0-30.0); Chloride 102 mmol/L (98-107); Creatinine,Serum 0.60 mg/dl (0.66-1.25); Estimated Glomerular Filt Rate 148 ml/min (>60); GFR (African American) 180 ML/MIN (>60); Globulin 2.4 g/dL (1.3-3.2); Glucose 107 mg/dl (74-100); Potassium 4.3 mmoL/L (3.5-5.1); Sodium 137 mmol/L (136-145); Total Protein,Serum 6.5 g/dl (6.3-8.2)
== END 2024-11-24 23:59 | disposition home or self-care (01) ==
LOC: LAB 07:55
PROVIDERS: PCP Internal Medicine; Visit Provider Internal Medicine
DX: E29.1 Testicular hypofunction (principal); Z00.00 Encounter for general adult medical examination without abnormal findings; Z79.899 Other long term (current) drug therapy
CPT/HCPCS: 36415; 80053; 84403

== ENCOUNTER 2025-02-02 11:33 | Emergency (ER) | payer MEDICAID, SELFPAY ==
[2025-02-02] VITALS (8 sets, daily range): BP systolic 113–136; BP diastolic 77–92; PULSE 69–86; RESP 19–24; TEMP 36.7–36.8; O2SAT 94–98; BMI 34.3
--- OUTSIDE RECORDS SUMMARY | 2025-02-02 11:52 | XMS_ITS | Patient Health Record ---
Author Organization [facility] Billing Info Address [address] [place] [id number] Care Team Providers Care Latin American Studies Director Name Role Phone ARLEY ROBLEDO Primary Care Provider [phone] SALBADOR GRIJALVA Unavailable [phone] Reason For Referral No Information Medications [...] Problem Status W/U Status Risk Notes Problem 34124822 Other hyperlipidemia (E78.49) Active confirmed -Continue crestor -Will check repeat lipid panel. Problem 712254224 Dyslipidemia (E78.5) Active confirmed Problem [id number] Obesity (BMI 30.0-34.9) (E66.9) Active confirmed -Patient has been losing weight with diet and exercise. 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 Problem 25541276 Schizophrenia, unspecified type (F20.9) Active confirmed Initial [...] Name Order Date TESTICULAR IMAGING; W/VASCULAR FLOW (783 [id number]) 06/13/2019 Insurance Providers Payer Name Payer Address Payer Phone Subscriber Number Group Number Insured Name Patient Relationship to Insured Coverage Start Date Coverage End Date [facility] [address] [place] [phone] [id number] Rivera Patricio Self - patient is the insured 8 Medical (General) History Medical History History ICD Code Autism Seizure Obesity Dyslipidemia Surgical History Surgery Date(Month/Year) Hospitalization History Reason Date(Month/Year) Seizures 12/2015
--- NOTE | 2025-02-02 12:01 | ECG_ITS ---
APPROVED REPORT Exam: Resting ECG HR:78 bpm ECG Measurements Heart Rate 78 AXES IN 165 P 43 QRSd 106 QRS 10 QT 355 T 257 QTc 389 Conclusion Normal sinus rhythm Normal axis Normal intervals No STEMI Electronically signed by : Sean Cochran, 02/02/2025 16:12:13
[2025-02-02 12:02] LABS: Hematocrit 45.2 % (42.0-52.0); Hemoglobin 15.7 g/dL (14.1-18.0); Immature Granulocytes % 0.1 %; Mean Corpuscular HGB Conc 34.7 g/dL (31.8-35.4); Mean Corpuscular Hemoglobin 30.1 pg (27.0-31.2); Mean Corpuscular Volume 86.8 fl (80-94); Nucleated Red Blood Cells % 0 %; Platelet Count 225 K/mm3 (142-424); Red Blood Count 5.21 M/mm3 (4.60-6.20); Red Cell Distribution Width-SD 39.5 fL; White Blood Count 6.8 K/mm3 (4.8-10.8)
[2025-02-02 12:13] LABS: Alanine Aminotransferase 61 U/L (12-78); Albumin Level 4.5 g/dl (3.5-5.0); Albumin/Globulin Ratio 1.7 (1.1-1.8); Alkaline Phosphatase 86 U/L (38-126); Anion Gap 15.2 mEq/L (5-15); Aspartate Amino Transferase 37 U/L (17-59); Bilirubin,Total 1.0 mg/dl (0.2-1.3); Blood Urea Nitrogen 9 mg/dl (9-20); Calcium 9.6 mg/dl (8.4-10.2); Carbon Dioxide 27 mmol/L (22.0-30.0); Chloride 101 mmol/L (98-107); Creatine Kinase 70 U/L (55-170); Creatinine Clearance Estimated 176 mL/min (50-200); Creatinine,Serum 0.70 mg/dl (0.66-1.25); Estimated Glomerular Filt Rate 124 ml/min (>60); GFR (African American) 150 ML/MIN (>60); Globulin 2.6 g/dL (1.3-3.2); Glucose 104 mg/dl (74-100); Lipase 82 U/L (23-300); Potassium 4.2 mmoL/L (3.5-5.1); Sodium 139 mmol/L (136-145); Total Protein,Serum 7.1 g/dl (6.3-8.2)
[2025-02-02 12:25] LABS: Troponin I < 0.01 ng/ml (0.00-0.034)
[2025-02-02 12:28] LABS: Microscopic, Urine URINE MICROSCOPIC (MICROSCOPIC)
[2025-02-02 12:29] LABS: Bilirubin,Urine Negative (Negative); Color,Urine YELLOW (Yellow); Glucose,Urine (UA) Negative (Negative); Ketones,Urine Negative (Negative); Leukocyte Esterase,Urine Negative (Negative); PH,Urine 6.5 (5.0-8.5); Protein,Urine Negative (Negative); Specific Gravity, Urine <= 1.005 (1.005-1.030); Urobilinogen,Urine 0.2 EU/dl (0.2)
--- NOTE | 2025-02-02 14:26 | HMH.EDGENADL ---
Discharge Plan Disposition Patient Disposition: Home, Self-Care Condition: Good Prescriptions Prescriptions: No Action levetiracetam 500 mg tablet 500 mg PO BID testosterone 20.25 mg/1.25 gram (1.62 %) gel in metered-dose pump 4 pump topical DAILY Qty: 75 2RF Rx Instructions: apply 2 pumps to each arm/shoulder every day olanzapine 10 mg tablet See Rx Instructions .ROUTE .COMPLEX Qty: 90 1RF Dose Instruction: TAKE ONE TABLET BY MOUTH EVERY DAY AT BEDTIME Rx Instructions: TAKE ONE TABLET BY MOUTH EVERY DAY AT BEDTIME levetiracetam 500 mg tablet See Rx Instructions .ROUTE .COMPLEX Qty: 60 2RF Dose Instruction: TAKE ONE TABLET BY MOUTH TWICE DAILY Rx Instructions: TAKE ONE TABLET BY MOUTH TWICE DAILY trihexyphenidyl 2 mg tablet See Rx Instructions .ROUTE .COMPLEX Qty: 90 3RF Dose Instruction: TAKE ONE TABLET BY MOUTH EVERY DAY WITH FOOD (MEAL/SNACK) Rx Instructions: TAKE ONE TABLET BY MOUTH EVERY DAY WITH FOOD (MEAL/SNACK) rosuvastatin 40 mg tablet See Rx Instructions .ROUTE .COMPLEX Qty: 90 3RF Dose Instruction: TAKE 1/2 TABLET BY MOUTH EVERY DAY Rx Instructions: TAKE 1/2 TABLET BY MOUTH EVERY DAY ondansetron 4 mg tablet,disintegrating See Rx Instructions .ROUTE .COMPLEX Qty: 60 5RF Dose Instruction: DISSOLVE 1-2 TABLETS in MOUTH EVERY 8 HOURS NEEDED FOR NAUSEA AND VOMITING Rx Instructions: DISSOLVE 1-2 TABLETS in MOUTH EVERY 8 HOURS NEEDED FOR NAUSEA AND VOMITING Referrals Follow up/Referrals: Chu Morris DO [Primary Care Provider, Family Practice] - See instructions Activity Restrictions/Add. Instructions Additional Instructions/Restrictions: Please call Dr. Morris's office and ask for an appointment with any of Dr. Morris's partners, such as Ms. Chilel or Ms. Carlos. You may consider pursuing a sleep study. If he develops inability to stand or ambulate please return. Clinical Impressions Clinical Impression: Generalized muscle weakness Print Language Print Language: Tanzanian Discharge ED Provider: Sean Cochran Adult HPI General Chief complaint: Weakness Stated complaint: weakness, unsteady Time Seen by Provider: 02/02/25 11:44 Mode of Arrival: Ambulatory Source of Information: Patient and Parent(s) Description of Symptoms (Recalled from ER Triage Doc. by RN): pt is here for generalized weakness for two months, pt has seen pcp for it several times and had labs done, pt father states pcp is going out of town for a month and this cannot wait. pt is alox4 and appropirate per triage History of Present Illness HPI narrative: This is a 44-year-old male patient, with past medical history of schizophrenia, seizure disorder, and autism spectrum disorder, who is presenting to the emergency department today for evaluation of weakness. The patient states that he follows with Dr. Morris in the family medicine clinic. He has been evaluated by Dr. Morris on numerous occasions for worsening weakness over the last several months. Over the last 2 weeks the patient's father states that he has had a significant decline in his physical activity and he only leaves the bed for a few minutes every single day. The patient has not had any true difficulty with walking and has not had any overt abnormalities in his gait. He has not had any focal weakness or sensory deficits. He has not had any rashes on his shoulders or hands. He has not had any chest pains or palpitations. No gastrointestinal symptoms. Dr. Morris has identified in the clinic that the patient suffers from hypogonadism and he is currently treated the patient with testosterone for this Related Data Home Medications ?Medication ?Instructions ?Recorded ?Confirmed levetiracetam 500 mg tablet 500 mg PO BID 11/23/24 01/02/25 Previous Rx's ?Medication ?Instructions ?Recorded olanzapine 10 mg tablet See Rx Instructions .Route 09/18/24 .COMPLEX #90 tabs levetiracetam 500 mg tablet See Rx Instructions .Route 12/04/24 .COMPLEX #60 tabs trihexyphenidyl 2 mg tablet See Rx Instructions .Route 12/27/24 .COMPLEX #90 tabs testosterone 4 pump topical DAILY #75 grams 01/02/25 rosuvastatin 40 mg tablet See Rx Instructions .Route 01/18/25 .COMPLEX #90 tabs ondansetron 4 mg disintegrating See Rx Instructions .Route 01/25/25 tablet .COMPLEX #60 ea Allergies Allergy/AdvReac Type Severity Reaction Status Date / Time No Known Allergies Allergy Verified 01/02/25 09:09 [facility] Disclaimer: The information contained in this section may have been updated after the patient was seen, as this information can be updated by other users. Medical History Autism spectrum disorder Diarrhea Plantar fasciitis of left foot Seizure disorder Stable on Valproic acid, (within therapeutic range). Valproic acid is currently prescribed by PCP History of head injury without fracture of skull Schizophrenia Stable on olanzapine, takes Benadryl, valproic acid Family history of coronary arteriosclerosis HLD (hyperlipidemia) Surgical History No significant past surgical history Family History Other Coronary arteriosclerosis Social History Smoking Status: Never smoker second hand exposure: No alcohol intake: current alcohol intake frequency: a few times a month counseling given: No substance use type: denies use counseling given: No current occupational status: disabled Travel in the last 8 weeks?: None adopted: No caregiver/support person: No foster care: No household members: family housing: house lives independently: No marital status: single number of children: 0 education level: high school caffeine: No physical activity: none working smoke detector in home: Yes fire extinguisher in home: Yes carbon monox detector in home: No firearms in home: No do you feel safe at home: Yes victim of physical abuse: No victim of emotional abuse: No victim of sexual abuse: No would you like helpful sources: No Have you lived/traveled outside [place] in past 30 days?: No Contact w/someone who lives/traveled outside US past 30 days?: No Exposure to someone with infectious disease in past 14 days?: No Do you have a fever (greater than 100.4 F or 38 C)?: No Have you tested positive for COVID-19?: No Exposed to someone with COVID-19 in past 14 days?: No Do you have a sore throat?: No Do you have a cough?: No Do you have any weakness?: No Do you have any diarrhea?: No Are you experiencing any unusual bleeding?: No Do you have any muscle aches/pain?: No Do you have any abdominal pain?: No Are you experiencing loss of taste or smell?: No Other Medical History Have you received the Pneumonia Vaccine: No ROS Obtained: Yes Systems reviewed as appropriate & no additional complaints except as documented Physical Exam General General appearance: other (See MDM) Respiratory Respiratory exam: Present other (See MDM) Cardiovascular Cardiovascular exam: Present other (See MDM) Neurological Exam Neurological exam: Present other (See MDM) Medical Decision Making Medical Records Medical records reviewed: Yes I reviewed the patient's medical records. Screening: Per USPSTF and CDC recommendations, given the prevalence of disease in our region, it is our hospital?s policy to screen for HIV and viral Hepatitis for all patients aged 18 and over and those with ongoing risk factors. Mario Inquiry Pt receiving controlled substance: No Mario was queried for this patient: No Vital Signs: 02/02/25 11:49 02/02/25 11:58 02/02/25 12:03 Temperature 98.3 F Temperature Source Oral Pulse Rate 79 Pulse Rate [Left Radial] 72 Pulse Rate [Orthostatic Lying] 74 Pulse Rate [Orthostatic Sitting] 79 Pulse Rate [Orthostatic Standing] 86 Respiratory Rate 20 Blood Pressure 132/86 Blood Pressure [Orthostatic Lying] 136/91 H Blood Pressure [Orthostatic Sitting] 132/86 Blood Pressure [Orthostatic Standing] 124/86 Blood Pressure [Right Arm] 135/92 H Blood Pressure Mean [Right Arm] 106 02 Sat by Pulse Oximetry 95 95 Oxygen Delivery Method Room Air 02/02/25 12:30 02/02/25 13:00 02/02/25 13:30 Temperature Temperature Source Pulse Rate 72 69 78 Pulse Rate [Left Radial] Pulse Rate [Orthostatic Lying] Pulse Rate [Orthostatic Sitting] Pulse Rate [Orthostatic Standing] Respiratory Rate 24 19 22 Blood Pressure 124/79 124/77 134/82 Blood Pressure [Orthostatic Lying] Blood Pressure [Orthostatic Sitting] Blood Pressure [Orthostatic Standing] Blood Pressure [Right Arm] Blood Pressure Mean [Right Arm] 02 Sat by Pulse Oximetry 94 L 95 94 L Oxygen Delivery Method Room Air Room Air 02/02/25 14:00 02/02/25 14:41 Temperature 98.1 F Temperature Source Pulse Rate 75 82 Pulse Rate [Left Radial] Pulse Rate [Orthostatic Lying] Pulse Rate [Orthostatic Sitting] Pulse Rate [Orthostatic Standing] Respiratory Rate 19 20 Blood Pressure 120/81 113/77 Blood Pressure [Orthostatic Lying] Blood Pressure [Orthostatic Sitting] Blood Pressure [Orthostatic Standing] Blood Pressure [Right Arm] Blood Pressure Mean [Right Arm] 02 Sat by Pulse Oximetry 98 Oxygen Delivery Method Room Air Lab Data Lab Results 02/02/25 11:50: WBC 6.8, RBC 5.21, Hgb 15.7, Hct 45.2, MCV 86.8, MCH 30.1, MCHC 34.7, RDW 12.4, Plt Count 225, MPV 10.9 H, Neut % (Auto) 62.6, Lymph % (Auto) 27.6, [place] % (Auto) 8.7, Eos % (Auto) 0.7, Baso % (Auto) 0.3, Neut # (Auto) 4.2, Lymph # (Auto) 1.9, [place] # (Auto) 0.6, Eos # (Auto) 0.1, Baso # (Auto) 0.0, ESR 1, Sodium 139, Potassium 4.2, Chloride 101, Carbon Dioxide 27, Anion Gap 15.2 H, BUN 9, Creatinine 0.70, Estimated Creat Clear 176, Estimated GFR 124, Est GFR ( Amer) 150, Glucose 104 H, Calcium 9.6, Total Bilirubin 1.0, AST 37, ALT 61, Alkaline Phosphatase 86, Total Creatine Kinase 70, Troponin I < 0.01, Total Protein 7.1, Albumin 4.5, Globulin 2.6, Albumin/Globulin Ratio 1.7, Lipase 82 02/02/25 12:24: Urine Color Yellow, Urine Appearance Clear, Urine pH 6.5, Ur Specific [place] <= 1.005, Urine Protein Negative, Urine Glucose (UA) Negative, Urine Ketones Negative, Urine Blood Negative, Urine Nitrate Negative, Urine Bilirubin Negative, Urine Urobilinogen 0.2, Ur Leukocyte Esterase Negative, Urine RBC None, Urine WBC None, Ur Squamous Epith Cells None, Urine Bacteria None 02/02/25 11:50 02/02/25 11:50 Orders (Tests/Meds): ORDERS Category Date Time Status CBC w/Auto Diff [Complete Blood Count Auto Diff] Stat Lab 02/02/25 11:50 Completed CK [Creatine Kinase] Stat Lab 02/02/25 11:50 Completed CMP [Comprehensive Metabolic Panel] Stat Lab 02/02/25 11:50 Completed ESR [Erythrocyte Sedimentation Rate] Stat Lab 02/02/25 11:50 Completed Lipase Stat Lab 02/02/25 11:50 Completed Troponin I Stat Lab 02/02/25 11:50 Completed Urinalysis and Microscopic Stat Lab 02/02/25 12:24 Completed ECG Data Tracing #1: I reviewed this ECG and interpreted as documented below: EKG personally interpreted by me demonstrates normal sinus rhythm with a rate of 78 bpm, normal axis, no MN prolongation, narrow QRS, no QTc prolongation. No ST elevation or depression. No overt signs of ischemia or arrhythmia Medical Decision Narrative: In summary, this is a 44-year-old male patient who is presenting to the emergency department today for generalized weakness that has been occurring over the last 2 to 3 months and worsening over the last 2 weeks. The patient has no accompanying symptoms in addition to this. His comorbidities include a past medical history of hypogonadism, seizure disorder, and autism spectrum disorder. On initial evaluation of the patient they were resting comfortably in no acute distress and nontoxic in appearance. They are hemodynamically stable, saturating well room air, and are neurologically intact. On secondary assessment of the patient's heart and lungs are clear to auscultation bilaterally. He has no evidence of goiter. His abdomen is soft and nontender to palpation. He has 5 out of 5 strength in his bilateral upper and lower extremities. Normal sensation in all terminal nerve distributions. I have had the patient stand independently and walk. He does not have a broad-based gait and does not walk with ataxia. He has no cerebellar signs on exam. Differential diagnosis includes anemia, polymyalgia rheumatica, rhabdomyolysis, acute kidney injury, electrolyte derangement, myocardial ischemia, urinary tract infection, among others. Workup was initiated with hematologic labs as well as an EKG. Labs were personally interpreted by me and demonstrate no signs of anemia, no leukocytosis, no electrolyte derangement or acute kidney injury. Glucose is relatively normal. Troponin is less than 0.01. No transaminitis. No hyperbilirubinemia. The patient's CK and ESR are normal which suggest against myositis or rhabdomyolysis I have had a very long conversation with both the patient and his father. They tell me that he snores at night and has never had a sleep study. I have asked him to explore this with their primary care provider. Ultimately the patient does not have any abnormalities on his labs that would warrant admission to the hospital. He is standing without difficulty and ambulating without difficulty so at this time there is no current indication to admit the patient to the hospital for further management. They have voiced concern over the fact that Dr. Morris is out of the clinic for the rest of the month and they will not be able to see him until March. I have specifically instructed them to contact [address] Morris's colleagues for an appointment for further workup of his weakness in the outpatient setting. At this time all questions were answered and all parties were agreeable with the decision to discharge home Critical Care Critical Care Time Critical Care Time: No
== END 2025-02-02 14:45 | disposition home or self-care (01) ==
PROVIDERS: Emergency Provider Student in an Organized Health Care Education/Training Program; PCP Internal Medicine
DX: M62.81 Muscle weakness (generalized) (principal); F84.0 Autistic disorder
CPT/HCPCS: 80053; 81001; 82550; 83690; 84484; 85025; 85651; 93005; 99283; 99284

== ENCOUNTER 2025-03-09 08:19 | Outpatient (CLI) | payer MEDICAID, SELFPAY ==
--- OUTSIDE RECORDS SUMMARY | 2025-03-09 08:24 | XMS_ITS | Patient Health Record ---
Author Organization [facility] Garett mason Billing Info Address [address] [place] [id number] Care Team Providers Care Computer Systems Technician Name Role Phone ARLEY ROBLEDO Primary Care Provider SALBADOR GRIJALVA Unavailable Reason For Referral No Information Medications Medication [...] Problem Status W/U Status Risk Notes Problem 82242083 Other hyperlipidemia (E78.49) Active confirmed -Continue crestor -Will check repeat lipid panel. Problem 823938726 Dyslipidemia (E78.5) Active confirmed Problem [id number] Obesity (BMI 30.0-34.9) (E66.9) Active confirmed -Patient has been losing weight with diet and exercise. 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 Problem 16282304 Schizophrenia, unspecified type (F20.9) Active confirmed Initial [...] Name Order Date TESTICULAR IMAGING; W/VASCULAR FLOW ([id number]) 06/13/2019 Insurance Providers Payer Name Payer Address Payer Phone Subscriber Number Group Number Insured Name Patient Relationship to Insured Coverage Start Date Coverage End Date [facility] [address] [place] [id number] [phone] [id number] Rivera Patricio Self - patient is the insured 8 Medical (General) History Medical History History ICD Code Autism Seizure Obesity Dyslipidemia Surgical History Surgery Date(Month/Year) Hospitalization History Reason Date(Month/Year) Seizures 12/2015
[2025-03-09 09:49] LABS: Cholesterol 155 mg/dl (140-200); HDL Cholesterol 37 mg/dl (40-60); Triglycerides 218 mg/dl (30-150)
== END 2025-03-09 23:59 | disposition home or self-care (01) ==
LOC: LAB 08:20
PROVIDERS: PCP Internal Medicine; Visit Provider Internal Medicine
DX: E78.5 Hyperlipidemia, unspecified (principal)
CPT/HCPCS: 36415; 80061; 84403